=== PATIENT | female | born 1960 | race Caucasian/White ===

== ENCOUNTER 2019-03-06 19:35 | Emergency (ER) | payer MEDICARE ==
[2019-03-06] MEDS ORDERED: 0.9 % SODIUM CHLORIDE 1,000 ML BAG IV ONE (19:49)
--- NOTE | 2019-03-06 19:50 | Emergency Department Record ---
History of Present Illness - General Chief Complaint: Abdominal Pain Stated Complaint: LT HSIDE/ABDOMINAL PAIN Time Seen by Provider: 03/06/19 19:47 Source: Patient, Family Mode of Arrival: Ambulatory Limitations: No limitations - History of Present Illness Initial Comments: 58 yo female presents with left sided abdominal pain/ left flank pain for the last week. The pain intensity does seem to come and go. No rash, no fevers, no diarrhea, no vomiting. The pain radiates to the left groin a little. She saw her chiropractor twice. No improvement with chiropractic manipulation. She feels like her feet are swollen as well. No cough, no chest pain, no back pain. No urinary symptoms. She has had diverticulosis on a prior CT that was performed by hematuria in the past. MD Complaint: Abdominal pain, Flank pain Onset/Timin -: Week(s) Location: LLQ Radiation: None Migration to: No migration Severity scale (1-10): 6 Quality: Sharp Consistency: Constant Improves With: Nothing Worsens With: Other Associated Symptoms: Denies other symptoms - Related Data LMP (females 10-50): Unknown Patient : No Home Medications Medication Instructions Recorded Confirmed Last Taken Aspirin [Aspirin EC] 325 mg PO DAILY 03/06/19 03/06/19 03/06/19 Ergocalciferol (Vitamin D2) 50,000 unit PO DAILY 03/06/19 03/06/19 03/06/19 [Vitamin D2] Previous Rx's Medication Instructions Recorded Cyclobenzaprine HCl [Flexeril] 10 mg PO TID PRN #20 tablet 09/07/16 Methylprednisolone [Medrol Dose 0 mg PO UD #1 tab.ds.pk 03/06/19 Pack] Allergies Allergy/AdvReac Type Severity Reaction Status Date / Time sulfamethoxazole Allergy system Verified 09/07/16 21:21 [From Bactrim] shut down trimethoprim [From Bactrim] Allergy system Verified 09/07/16 21:21 shut down Travel Screening - Travel/Exposure Within Last 30 Days Have you traveled within the last 30 days?: No - Travel Symptoms Symptom Screening: None Review of Systems Constitutional: Denies: Chills, Fever, Malaise, Weakness Eyes: Denies: Eye discharge ENT: Denies: Congestion, Throat pain Respiratory: Denies: Cough, Dyspnea, Wheezes Cardiovascular: Reports: Edema. Denies: Chest pain, Dyspnea on exertion, Murmurs, Palpitations, Syncope Endocrine: Denies: Fatigue Gastrointestinal: Denies: Abdominal pain, Diarrhea, Nausea, Vomiting Genitourinary: Denies: Dysuria, Urgency Musculoskeletal: Reports: Arthralgia. Denies: Back pain, Joint swelling, Myalgia Skin: Denies: Bruising, Change in color, Rash Neurological: Denies: Headache, Numbness, Weakness Psychiatric: Denies: Anxiety Hematological/Lymphatic: Denies: Easy bleeding, Easy bruising Past Medical History - SOCIAL HISTORY Smoking Status: Current every day smoker - RESPIRATORY Hx Respiratory Disorders: No - CARDIOVASCULAR Hx Cardio Disorders: No - NEURO Hx Neuro Disorders: Yes Hx CVA: Yes (2006) - GI Hx GI Disorders: No - Hx Genitourinary Disorders: No - ENDOCRINE Hx Endocrine Disorders: No - MUSCULOSKELETAL Hx Musculoskeletal Disorders: Yes Comment:: knee injury - PSYCH Hx Psych Problems: Yes Hx Anxiety: Yes Hx Depression: Yes - HEMATOLOGY/ONCOLOGY Hx Hematology/Oncology Disorders: No Family Medical History Hx Cancer: Mother Hx Diabetes: Father, Grandparents Physical Exam - General General Appearance: Alert, Oriented x3, Cooperative, No acute distress Limitations: No limitations - Head Head exam: Atraumatic, Normal inspection - Eye Eye exam: Normal appearance, PERRL. negative: Conjunctival injection, Scleral icterus - ENT ENT exam: Normal exam, Mucous membranes moist Ear exam: Normal external inspection Nasal Exam: Normal inspection Mouth exam: Normal external inspection - Neck Neck exam: Normal inspection - Respiratory Respiratory exam: Normal lung sounds bilaterally. negative: Respiratory distress - Cardiovascular Cardiovascular Exam: Regular rate, Normal rhythm, Normal heart sounds - GI/Abdominal GI/Abdominal exam: Soft, Tenderness (Tender LLQ but soft, no mass or obvious hernia). negative: Distended, Guarding, Hypoactive bowel sounds, Rebound, Rigid - Rectal Rectal exam: Deferred - exam: Deferred - Extremities Extremities exam: Normal inspection, Tenderness, Other (No pitting edema, no calf tenderness bilateral, she does have some pain with hip log roll and flexion ). negative: Calf tenderness, Full ROM, Joint swelling, Pedal edema - Back Back exam: Reports: CVA tenderness (L), Full ROM, Tenderness. Denies: CVA tenderness (R), Paraspinal tenderness, Rash noted, Vertebral tenderness - Neurological Neurological exam: Alert, Oriented X3 - Psychiatric Psychiatric exam: Normal affect, Normal mood - Skin Skin exam: Dry, Intact, Normal color, Warm Course Vital Signs 03/06/19 19:40 Temperature 98.3 F Pulse Rate [ 81 Pulse Ox Probe] Respiratory 24 Rate Blood Pressure 135/77 [Left Arm] Pulse Ox 95 - Reevaluation(s) Reevaluation #1: Vitals reviewed. No significant abnormalities. The EMR was reviewed. Prior diverticulosis on CT in August or 2017 performed for hematuria. 03/06/19 20:13 The CBC was reviewed. No acute abnormalities. 03/06/19 20:18 The UA demonstrates blood, no infection. 03/06/19 20:38 No changes on the CMP or Lipase Medical Decision Making - Lab Data Result diagrams: 03/06/19 20:00 03/06/19 20:00 Disposition Disposition: Discharge Disposition: Home, Self-Care Condition: (1) Good Instructions: Arthritis (ED) Additional Instructions: Call your doctor for the next available follow up appointment Return to the ER for a recheck if worse, any new concerns or questions Take the prescriptions provided as directed Review this ER visit and the tests performed with your family doctor Prescriptions: Methylprednisolone [Medrol Dose Pack] 0 mg PO UD #1 tab.ds.pk Referrals: NEL HAMEED [DOCTOR OF OSTEOPATH] - Forms: Patient Portal Access Time of Disposition: 20:51 Quality - Quality Measures Quality Measures: N/A - Blood Pressure Screening Does Patient Have Any of the Following: No Blood Pressure Classification: Pre-Hypertensive BP Reading Systolic Measurement: 121 Diastolic Measurement: 74 Screening for High Blood Pressure: < Pre-Hypertensive BP, F/U Documented > [ G8950] Pre-Hypertensive Follow-up Interventions: Referral to alternative/primary care provider.
[2019-03-06 20:09] LABS: BASO % 0.6 % (0-6); EOS % 3.4 % (0-6); GRAN % 54.2 % (47-80); HEMATOCRIT 41.1 % (35.0-47.0); HEMOGLOBIN 13.2 gm/dl (11.6-16.0); LYMPH % 34.8 % (16-45); MEAN CELL VOLUME 89.5 fl (81-97); MEAN CORPUSCULAR HEMOGLOBIN 28.8 pg (27-33); MEAN CORPUSCULAR HGB CONC 32.1 g/dl (32-36); MEAN PLATELET VOLUME 9.1 fl (7.4-10.4); PLATELET COUNT 259 K/uL (130-400); RED BLOOD COUNT 4.59 M/uL (3.80-5.40); RED CELL DISTRIBUTION WIDTH 14.2 % (11.5-14.5)
[2019-03-06 20:10] LABS: URINE APPEARANCE CLEAR; URINE BILIRUBIN NEGATIVE (NEGATIVE); URINE BLOOD MODERATE (NEGATIVE); URINE COLOR YELLOW; URINE GLUCOSE (UA) NEGATIVE (NEGATIVE); URINE KETONE NEGATIVE (NEGATIVE); URINE LEUKOCYTE ESTERASE NEGATIVE (NEGATIVE); URINE NITRITE NEGATIVE (NEGATIVE); URINE PROTEIN NEGATIVE (NEGATIVE); URINE UROBILINOGEN 0.2 E.U./dL (0.20 - 1.00)
[2019-03-06 20:17] LABS: URINE BACTERIA FEW; URINE EPITHELIAL CELLS 0 - 2 (FEW); URINE RBC 0 - 2 (NONE SEEN); URINE WBC NONE SEEN (0-2/hpf)
[2019-03-06 20:22] LABS: BLOOD UREA NITROGEN 15 mg/dL (6-20); CREATININE 0.7 mg/dL (0.5-0.9); EST GLOMERULAR FILTRATION RATE > 60 mL/min
[2019-03-06 20:23] LABS: LIPASE 17 U/L (13-60); TOTAL PROTEIN 6.9 g/dL (6.6-8.7)
[2019-03-06 20:24] LABS: GLUCOSE,RANDOM 100 mg/dL (74-109)
[2019-03-06 20:27] LABS: ALB/GLOB RATIO 1.7 (1.1-1.8); ALBUMIN 4.3 g/dL (4.0-5.0); ALKALINE PHOSPHATASE 74 U/L (35-104); ALT/SGPT 18 U/L (<33); AST/SGOT 17 U/L (10.0-35.0)
[2019-03-06] MEDS ORDERED: METHYLPREDNISOLONE PF 125MG/VIAL IVP ONE (20:49)
--- NOTE | 2019-03-08 09:12 | CT SCAN REPORT ---
EXAM: CT SCAN OF THE ABDOMEN AND PELVIS WITHOUT CONTRAST HISTORY: LEFT FLANK PAIN AND LEFT LOWER QUADRANT ABDOMINAL PAIN FOR THE PAST ONE TO TWO WEEKS. TECHNIQUE: Standard CT imaging of the abdomen and pelvis was performed without contrast. Additional coronal and sagittal reformatted images were also performed. Comparison: 09/28/18. FINDINGS: The lung bases are clear. The liver, gallbladder, biliary tree, pancreas, spleen, adrenal glands, kidneys and ureters are normal. There is no urinary tract calculus or obstructive uropathy. The aorta is normal in caliber. There is no retroperitoneal lymphadenopathy. The stomach and epigastrium are normal. There are scattered diverticula within the sigmoid colon with no evidence for acute diverticulitis. The remaining large and small bowel loops including the appendix are normal. There is no pneumoperitoneum or ascites. The uterus is surgically absent. The urinary bladder is normal in appearance. There is a tiny fat containing umbilical hernia. The abdominal wall is otherwise unremarkable. There are no inguinal hernias. There are stable degenerative changes within the lower lumbar spine. Minor arthritic changes are also present within both hips. There are no acute osseous abnormalities. A small left hip effusion is present. IMPRESSION: 1. NO ACUTE INTRAABDOMINAL PATHOLOGY. 2. MILD ARTHRITIC CHANGES ARE SMALL JOINT EFFUSION WITHIN THE LEFT HIP. 3. NO ACUTE OSSEOUS ABNORMALITIES. 4. MILD SIGMOID DIVERTICULOSIS WITH NO DIVERTICULITIS. JOB NUMBER: [id number] [facility]
== END 2019-03-06 21:03 | disposition home or self-care (01) ==
LOC: ER 19:35
DX: M16.12 Unilateral primary osteoarthritis, left hip (principal); R10.32 Left lower quadrant pain; F17.210 Nicotine dependence, cigarettes, uncomplicated
CPT/HCPCS: 74176; 80053; 81001; 83690; 85025; 96374; 99284; J2930; J7030

== ENCOUNTER 2019-10-04 16:24 | Emergency (ER) | payer MEDICARE ==
--- NOTE | 2019-10-04 17:10 | Emergency Department Record ---
History of Present Illness - General Chief complaint: Rectal bleeding Stated complaint: rectalcele repair/rectal bleeding/pain Time Seen by Provider: 10/04/19 16:57 Source: Patient, RN notes reviewed Mode of Arrival: Ambulatory - History of Present Illness Initial comments: post op day 8 and she is having some dark bleeding and vaginal pain on the left side and into groin . No abnormal lump present on examination . the rectocel site is healing and no significant drainage. Onset/Timin -: Days(s) Radiation: None Severity scale (1-10): 6 Quality: Sharp, Other Consistency: Intermittent Improves with: Other Worsens with: None Associated Symptoms: Denies other symptoms Treatments Prior to Arrival: OTC meds - Related Data Previous Rx's Medication Instructions Recorded Tramadol HCl [Ultram] 50 mg PO Q6H #12 tab 10/04/19 Allergies Allergy/AdvReac Type Severity Reaction Status Date / Time sulfamethoxazole Allergy system Verified 09/07/16 21:21 [From Bactrim] shut down trimethoprim [From Bactrim] Allergy system Verified 09/07/16 21:21 shut down Travel Screening - Travel/Exposure Within Last 30 Days Have you traveled within the last 30 days?: No - Travel/Exposure Within Last Year Have you traveled outside the [place] in the last year?: No - Additonal Travel Details Have you been exposed to anyone with a communicable illness?: No - Travel Symptoms Symptom Screening: None Review of Systems Reviewed: No additional complaints except as noted below Constitutional: Reports: As per HPI. Denies: Chills, Fever, Malaise, Night sweats, Weakness, Weight change Eyes: Reports: As per HPI. Denies: Eye discharge, Eye pain, Photophobia, Vision change ENT: Reports: As per HPI. Denies: Congestion, Dental pain, Ear pain, Epistaxis, Hearing loss, Throat pain Respiratory: Reports: As per HPI. Denies: Cough, Dyspnea, Hemoptysis, Stridor, Wheezes Cardiovascular: Reports: As per HPI. Denies: Arrhythmia, Chest pain, Dyspnea on exertion, Edema, Murmurs, Orthopnea, Palpitations, Paroxysmal nocturnal dyspnea, Rheumatic Fever, Syncope Endocrine: Reports: As per HPI. Denies: Fatigue, Heat or cold intolerance, Polydipsia, Polyuria Gastrointestinal: Reports: As per HPI. Denies: Abdominal pain, Constipation, Diarrhea, Hematemesis, Hematochezia, Melena, Nausea, Vomiting Genitourinary: Reports: As per HPI. Denies: Abnormal menses, Discharge, Dyspareunia, Dysuria, Frequency, Hematuria, Incontinence, Retention, Urgency Musculoskeletal: Reports: As per HPI. Denies: Arthralgia, Back pain, Gout, Joint swelling, Myalgia, Neck pain Skin: Reports: As per HPI. Denies: Bruising, Change in color, Change in hair/nails, Lesions, Pruritus, Rash Neurological: Reports: As per HPI. Denies: Abnormal gait, Confusion, Headache, Numbness, Paresthesias, Seizure, Tingling, Tremors, Vertigo, Weakness Psychiatric: Reports: As per HPI. Denies: Anxiety, Auditory hallucinations, Depression, Homicidal thoughts, Suicidal thoughts, Visual hallucinations Hematological/Lymphatic: Reports: As per HPI. Denies: Anemia, Blood Clots, Easy bleeding, Easy bruising, Swollen glands Past Medical History - SOCIAL HISTORY Smoking Status: Current every day smoker - RESPIRATORY Hx Respiratory Disorders: No - CARDIOVASCULAR Hx Cardio Disorders: No - NEURO Hx Neuro Disorders: Yes Hx CVA: Yes (2006) - GI Hx GI Disorders: No - Hx Genitourinary Disorders: No - ENDOCRINE Hx Endocrine Disorders: No - MUSCULOSKELETAL Hx Musculoskeletal Disorders: Yes Comment:: knee injury - PSYCH Hx Psych Problems: Yes Hx Anxiety: Yes Hx Depression: Yes - HEMATOLOGY/ONCOLOGY Hx Hematology/Oncology Disorders: No Family Medical History Any Significant Family History?: No Hx Cancer: Mother Hx Diabetes: Father, Grandparents Physical Exam - General General Appearance: Alert, Oriented x3, Cooperative, No acute distress - Head Head exam: Normal inspection - Eye Eye exam: Normal appearance, PERRL Pupils: Normal accommodation - ENT ENT exam: Normal exam, Mucous membranes moist, Normal external ear exam, Normal orophraynx, TM's normal bilaterally Ear exam: Normal external inspection. negative: External canal tenderness Nasal Exam: Normal inspection. negative: Discharge, Sinus tenderness Mouth exam: Normal external inspection, Tongue normal Teeth exam: Normal inspection. negative: Dental caries Throat exam: Normal inspection. negative: Tonsillar erythema, Tonsillar exudate - Neck Neck exam: Normal inspection, Full ROM. negative: Tenderness - Respiratory Respiratory exam: Normal lung sounds bilaterally. negative: Respiratory distress - Cardiovascular Cardiovascular Exam: Regular rate, Normal rhythm, Normal heart sounds - GI/Abdominal GI/Abdominal exam: Soft, Normal bowel sounds. negative: Tenderness - Rectal Rectal exam: Deferred - exam: Deferred, Other (posterior vaginal area examined with opening vagina with fingers only and the area is dark red no purulent drainage.) - Extremities Extremities exam: Normal inspection, Full ROM, Normal capillary refill. negative: Tenderness - Back Back exam: Reports: Normal inspection, Full ROM. Denies: Muscle spasm, Rash noted, Tenderness - Neurological Neurological exam: Alert, Normal gait, Oriented X3, Reflexes normal - Psychiatric Psychiatric exam: Normal affect, Normal mood - Skin Skin exam: Dry, Intact, Normal color, Warm Course Vital Signs 10/04/19 16:54 Temperature 98.6 F Pulse Rate [ 83 Pulse Ox Probe] Respiratory 20 Rate Blood Pressure 162/109 [Left Arm] Pulse Ox 96 Medical Decision Making - Data Complexity MDM Data: Labs Ordered and/or Reviewed ([id number], hg 12.9) - Lab Data Result diagrams: 10/04/19 17:10 Disposition Clinical Impression: Vaginal bleeding, Vaginal pain, Post-op pain Post-op bleeding Qualifiers: Surgical complication system/body Area: genitourinary Procedure type: genitourinary Qualified Code(s): N99.820 - Postprocedural hemorrhage of a genitourinary system organ or structure following a genitourinary system procedure Disposition: Home, Self-Care Condition: (1) Good Instructions: Wound Healing and Your Diet (ED) Additional Instructions: call tomorrow to inform surgeon progress and keep appointment in one week Prescriptions: Tramadol HCl [Ultram] 50 mg PO Q6H #12 tab Forms: Patient Portal Access Time of Disposition: 18:17 Quality - Quality Measures Quality Measures: N/A - Blood Pressure Screening Does Patient Have Any of the Following: No Blood Pressure Classification: Hypertensive Reading Systolic Measurement: 162 Diastolic Measurement: 109 Screening for High Blood Pressure: < First Hypertensive BP, F/U Documented > [G8950] First Hypertensive Follow-up Interventions: Referral to alternative/primary care provider.
[2019-10-04 17:18] LABS: ABSOLUTE NEUTROPHIL COUNT 4.85; BASO % 0.2 % (0-6); EOS % 3.4 % (0-6); GRAN % 60.3 % (47-80); HEMATOCRIT 40.8 % (35.0-47.0); HEMOGLOBIN 12.9 gm/dl (11.6-16.0); LYMPH % 28.3 % (16-45); MEAN CELL VOLUME 90.7 fl (81-97); MEAN CORPUSCULAR HEMOGLOBIN 28.7 pg (27-33); MEAN CORPUSCULAR HGB CONC 31.6 g/dl (32-36); MEAN PLATELET VOLUME 9.2 fl (7.4-10.4); MONO % 7.8 % (0-9); PLATELET COUNT 259 K/uL (130-400); WHITE BLOOD COUNT W/O DIFF 8.1 K/uL (4.2-12.2)
== END 2019-10-04 18:21 | disposition home or self-care (01) ==
LOC: ER 16:24
DX: N99.820 Postprocedural hemorrhage of a genitourinary system organ or structure following a genitourinary system procedure (principal); G89.18 Other acute postprocedural pain; K62.5 Hemorrhage of anus and rectum; R10.2 Pelvic and perineal pain; F17.210 Nicotine dependence, cigarettes, uncomplicated; Z86.73 Personal history of transient ischemic attack (TIA), and cerebral infarction without residual deficits
CPT/HCPCS: 85025; 99284